=== PATIENT | male | born 1955 | race Caucasian/White ===

== ENCOUNTER 2018-08-11 08:45 | Outpatient (CLI) | payer MEDICARE, OTHER ==
[~2018-08-11 08:45] MED LIST: ACET1TAB12 PO; ASPI-992 PO; CARV25TA PO; CHOL100040 PO; DOCU-270 PO; ESOM40CA PO; FINA5TAB11 PO; IBAN150T16 PO; INSU100C7 SQ; INSU100V11 SQ; INSU100V7 SQ; LATA2.5D7 OP; LISI-607 PO; MAGN500C16 PO; MYCO360T PO; PRED5TAB48 PO; SENN1TAB6 PO; TACR5CAP PO; TAMS0.4C34 PO; TEST5POW5 IM; ZOLP5TAB2 PO
== END 2018-08-11 23:59 | disposition home or self-care (01) ==
LOC: WOU 08:45
PROVIDERS: ATTEND Podiatrist Foot & Ankle Surgery
DX: E11.621 Type 2 diabetes mellitus with foot ulcer (principal); L97.522 Non-pressure chronic ulcer of other part of left foot with fat layer exposed; E11.610 Type 2 diabetes mellitus with diabetic neuropathic arthropathy; E11.42 Type 2 diabetes mellitus with diabetic polyneuropathy; Z79.4 Long term (current) use of insulin; I10 Essential (primary) hypertension; Z89.421 Acquired absence of other right toe(s); Z89.422 Acquired absence of other left toe(s); Z94.0 Kidney transplant status; Z87.891 Personal history of nicotine dependence
CPT/HCPCS: 11042; A6402; Z7610

== ENCOUNTER 2018-08-25 09:13 | Outpatient (CLI) | payer MEDICARE, OTHER | END 2018-08-25 23:59 | disposition home or self-care (01) | LOC: WOU 09:13 | PROVIDERS: ATTEND Podiatrist Foot & Ankle Surgery | DX: E11.42 Type 2 diabetes mellitus with diabetic polyneuropathy (principal); E11.610 Type 2 diabetes mellitus with diabetic neuropathic arthropathy; Z79.4 Long term (current) use of insulin; I10 Essential (primary) hypertension; Z89.421 Acquired absence of other right toe(s); Z89.422 Acquired absence of other left toe(s); Z94.0 Kidney transplant status; Z86.31 Personal history of diabetic foot ulcer; Z87.891 Personal history of nicotine dependence | CPT/HCPCS: A6402; G0463 ==

== ENCOUNTER 2020-01-04 11:00 | Outpatient (CLI) | payer MEDICARE, OTHER ==
[~2020-01-04 11:00] MED LIST changes: -TACR5CAP PO; +TACR5CAP2 PO
== END 2020-01-04 23:59 | disposition home or self-care (01) ==
LOC: WOU 11:00
PROVIDERS: ATTEND Podiatrist Foot & Ankle Surgery
DX: E11.621 Type 2 diabetes mellitus with foot ulcer (principal); L97.514 Non-pressure chronic ulcer of other part of right foot with necrosis of bone; E11.42 Type 2 diabetes mellitus with diabetic polyneuropathy; E11.610 Type 2 diabetes mellitus with diabetic neuropathic arthropathy; Z79.4 Long term (current) use of insulin; Z89.422 Acquired absence of other left toe(s); Z89.421 Acquired absence of other right toe(s); I10 Essential (primary) hypertension; Z94.0 Kidney transplant status; Z87.891 Personal history of nicotine dependence
CPT/HCPCS: 11044; 87070; 87075; 87077; 87186 ×4; A6407 ×2